=== PATIENT | male | born 1975 | race Caucasian/White ===

== ENCOUNTER 2017-01-14 15:47 | Emergency (ER) | payer BC, OTHER ==
[2017-01-14] MEDS ORDERED: KETOROLAC 30 MG/ML 1 ML VIAL IM STA (16:38)
--- NOTE | 2017-01-14 17:03 | XR ---
EXAMINATION TYPE: 3 views thoracic spine. 5 views lumbar spine. DATE OF EXAM: 01/14/2017 COMPARISON: NONE HISTORY: 41-year-old male with back pain after fall yesterday FINDINGS: Thoracic spine: 12 rib-bearing thoracic vertebral bodies. All pedicles are visualized. Vertebral body heights are pre served and alignment is maintained. Lumbar spine: Slight rotary levoconvex curvature of the lumbar spine with 5 lumbar type vertebral bodies. Mild dege nerative disc disease at L5-S1 with a limbus vertebra of the inferior L5. Vertebral body heights are preserved and alignment is maintained. IMPRESSION: 1. Thoracic and lumbar spine without vertebral compression collapse or malalignment. 2. Mild degenerative disc disease L5-S1. 3. Slight rotary levoconvex curvature/scoliosis of the lumbar spine.
--- NOTE | 2017-01-14 17:11 | ED ---
Back Pain HPI - General Chief Complaint: Back Pain/Injury Stated Complaint: Back Pain Time Seen by Provider: 01/14/17 16:36 Source: patient Limitations: no limitations - History of Present Illness Initial Comments: Patient is a 41-year-old male presenting to the emergency department with complaints of mid back pain. Patient states he was at the [facility] yesterday and first tripped over a cord while he might hurt his back. Patient then participated in a [employer] rides which exacerbated his back pain. Patient states he used to have problems with back pain but not anymore. Patient is currently rating his pain 6 out of 10, described as sharp, exacerbated with flexion and twisting. Patient denies recent illness, fevers, nausea, vomiting, shortness of breath, chest pain, abdominal pain, numbness or tingling, urinary or fecal incontinence, or saddle anesthesia. Patient is ambulatory. Patient states he took Tylenol prior to arrival. - Related Data Home Medications Medication Instructions Recorded Confirmed No Known Home Medications [No 01/14/17 01/14/17 Known Home Medications] Allergies Allergy/AdvReac Type Severity Reaction Status Date / Time Penicillins Allergy Anaphylaxis Verified 01/14/17 16:43 Review of Systems ROS Statement: Those systems with pertinent positive or pertinent negative responses have been documented in the HPI. ROS Other: All systems not noted in ROS Statement are negative. Past Medical History Past Medical History: No Reported History History of Any Multi-Drug Resistant Organisms: None Reported Past Surgical History: No Surgical Hx Reported Additional Past Surgical History / Comment(s): smokes 1 ppd Past Psychological History: No Psychological Hx Reported Smoking Status: Current every day smoker Past Alcohol Use History: None Reported Past Drug Use History: None Reported - Past Family History Mother History Unknown: Yes (Cardiac history) General Exam - General Exam Comments Initial Comments: GENERAL: Pt awake and alert, well-appearing, well-nourished, and in no acute distress. HEAD: Atraumatic, normocephalic. EYES: Pupils equal, round, and reactive to light, extraocular movements intact, sclera anicteric, conjunctiva are normal. ENT: Oropharynx clear without exudates. Moist mucous membranes. NECK:Normal range of motion, supple without lymphadenopathy. LUNGS: Breath sounds clear to auscultation bilaterally. No wheezes, rales, or rhonchi. HEART: Heart S1, S2, no S3 or S4. Regular rate and rhythm. No murmurs, rubs or gallops. ABDOMEN: Soft, nontender, nondistended, normoactive bowel sounds. No guarding, no rebound. No masses or organomegaly appreciated. Spine: Full range of motion of spine with flexion and extension even though it' s painful. Straight leg raise negative bilaterally. 5 out of 5 strength in hips/knees/ankles. Normal gait. Vertebral tenderness to mid back. EXTREMITIES: 2+ peripheral pulses. No edema. No calf tenderness. NEUROLOGICAL: Pt oriented x 3. No focal deficits noted. Strength and sensation grossly intact. PSYCH: Normal mood, normal affect. SKIN: Warm, dry, intact. Normal turgor. No rashes or lesions. Limitations: no limitations Course Vital Signs 01/14/17 01/14/17 16:09 17:35 Temperature 98.4 F 97.9 F Pulse Rate 70 62 Respiratory 20 14 Rate Blood Pressure 101/59 105/55 O2 Sat by Pulse 98 96 Oximetry Medical Decision Making - Medical Decision Making Acute mid back pain suspect secondary to strain. Spine and lumbar X-ray negative for acute fracture or dislocation. Patient given Toradol IM in the emergency department improvement. Patient instructed to follow-up with primary care physician or orthopedic service if pain does not improve. Discharge instructions and return parameters reviewed. - Radiology Data Radiology results: report reviewed X-ray thoracic spine x-ray lumbar spine: Thoracic and lumbar spine without vertebral compression collapse or malalignment. Mild degenerative disc disease L5 to S1. Slight rotary levoconvex curvature/scoliosis of the lumbar spine. Disposition Clinical Impression: Thoracic back sprain Disposition: HOME SELF-CARE Condition: Good Instructions: Acute Low Back Pain (ED) Additional Instructions: Continue Tylenol or Motrin for pain. May apply warm compresses or ice for relief. Follow-up with primary care physician as directed. If pain persists follow-up with orthopedic service. Referrals: Khurram Tripp MD [Primary Care Provider] - 1-2 days Roel Cheney MD [STAFF PHYSICIAN] - 1-2 days Time of Disposition: 17:10
[2017-01-14 17:37] VITALS: BP 105/55; PULSE 62; RESP 14; TEMP 97.9
== END 2017-01-14 17:37 | disposition home or self-care (01) ==
LOC: EC 15:47
DX: S23.3XXA Sprain of ligaments of thoracic spine, initial encounter (principal); F17.200 Nicotine dependence, unspecified, uncomplicated; Z88.0 Allergy status to penicillin; X50.1XXA Overexertion from prolonged static or awkward postures, initial encounter
CPT/HCPCS: 72072; 72110; 99283; 96372; J1885

== ENCOUNTER 2018-01-03 04:24 | Emergency (ER) | payer OTHER ==
[2018-01-03 04:29] VITALS: BP 114/70; PULSE 57; RESP 16; TEMP 98
[2018-01-03] MEDS ORDERED: CEPHALEXIN 500 MG CAP PO STA (05:04)
[2018-01-03] MEDS ORDERED: IBUPROFEN 600 MG TAB PO STA (05:04)
--- NOTE | 2018-01-03 05:18 | ED ---
ENT HPI - General Chief complaint: Dental/Oral Stated complaint: Mouth Injury Time Seen by Provider: 01/03/18 04:35 Source: patient Mode of arrival: ambulatory Limitations: no limitations - History of Present Illness Initial comments: This patient is a 42-year-old man who states that he was working on his car when he sustained a lip laceration. The patient states that he was in the process of swelling and hammer back and it struck his upper lip. He noticed that there was a laceration and he presents here to see about having this repaired. Patient denies any other injury. Patient states that he was wearing dentures and that these were cracked. He denies any injury other than that. MD complaint: other (Lip laceration) Onset/Timin -: hour(s) Location: upper lip Severity: mild Quality: dull Consistency: constant Improves with: none Worsens with: none - Related Data Previous Rx's Medication Instructions Recorded Cephalexin [Keflex] 500 mg PO Q6HR #28 cap 01/03/18 Ibuprofen [Motrin] 600 mg PO Q8HR PRN #20 tab 01/03/18 Allergies Allergy/AdvReac Type Severity Reaction Status Date / Time Penicillins Allergy Anaphylaxis Verified 01/03/18 04:29 Review of Systems ROS Statement: Those systems with pertinent positive or pertinent negative responses have been documented in the HPI. ROS Other: All systems not noted in ROS Statement are negative. Constitutional: Denies: fever ENT: Reports: other (Lip laceration). Denies: throat pain, epistaxis Respiratory: Denies: cough, dyspnea Hematological/Lymphatic: Denies: easy bleeding Past Medical History Past Medical History: No Reported History History of Any Multi-Drug Resistant Organisms: None Reported Past Surgical History: No Surgical Hx Reported Additional Past Surgical History / Comment(s): smokes 1 ppd Past Psychological History: No Psychological Hx Reported Smoking Status: Current every day smoker Past Alcohol Use History: None Reported Past Drug Use History: None Reported - Past Family History Mother History Unknown: Yes (Cardiac history) General Exam Limitations: no limitations General appearance: alert, in no apparent distress Head exam: Present: atraumatic, normocephalic Eye exam: Present: normal appearance. Absent: scleral icterus, conjunctival injection ENT exam: Present: other (The patient has an approximately 2 cm laceration to the upper lip bilaterally. The oral mucosa.) Skin exam: Present: warm, dry, normal color Course Vital Signs 01/03/18 04:26 Temperature 98 F Pulse Rate 57 L Respiratory 16 Rate Blood Pressure 114/70 O2 Sat by Pulse 98 Oximetry Procedures - Laceration Laceration #1 Consent Obtained: verbal consent Indication: laceration Site: lip Description: linear, clean Depth: simple, single layer Anesthetic Used: lidocaine 1% Anesthesia Technique: local infiltration Type of Sutures: vicryl Size of Sutures: 5-0 Number of Sutures: 2 Technique: simple, interrupted Patient Tolerated Procedure: well, no complications Disposition Clinical Impression: Lip laceration Disposition: HOME SELF-CARE Condition: Good Instructions: Laceration (ED) Prescriptions: Cephalexin [Keflex] 500 mg PO Q6HR #28 cap Ibuprofen [Motrin] 600 mg PO Q8HR PRN #20 tab PRN Reason: Pain Is patient prescribed a controlled substance at d/c from ED?: No Referrals: None,Stated [Primary Care Provider] - 1-2 days
== END 2018-01-03 05:37 | disposition home or self-care (01) ==
LOC: EC 04:24
DX: S01.511A Laceration without foreign body of lip, initial encounter (principal); F17.210 Nicotine dependence, cigarettes, uncomplicated; Z88.0 Allergy status to penicillin; Z97.2 Presence of dental prosthetic device (complete) (partial); W22.8XXA Striking against or struck by other objects, initial encounter; Y93.89 Activity, other specified
CPT/HCPCS: 12011; 99283

== ENCOUNTER 2019-01-23 04:56 | Emergency (ER) | payer OTHER ==
[2019-01-23 05:29] VITALS: BP 118/76; PULSE 67; RESP 18; TEMP 97.5
[2019-01-23] MEDS ORDERED: IBUPROFEN 600 MG TAB PO STA (05:42)
[2019-01-23] MEDS ORDERED: DIAZEPAM 5 MG TAB PO STA (05:42)
--- NOTE | 2019-01-23 05:42 | ED ---
Back Pain HPI - General Chief Complaint: Back Pain/Injury Stated Complaint: Back Pain Time Seen by Provider: 01/23/19 05:39 Source: patient, family Limitations: no limitations - History of Present Illness Initial Comments: This patient is a 43-year-old man who believes that he strained his back. The patient states that he had gone to help his father with some yard work. He st ates that he had pulled palate out of a grassy area, and believes he strained his low back. He states that that had been couple of days ago and then over the course of the next day he developed stiffness and aching to the low back. He is not having any weakness or numbness of the extremities. No change in urination or bowel movements. No abdominal pain. No saddle anesthesia. MD Complaint: back injury Onset/Timin -: days(s) Similar Symptoms Previously: Yes Place: street Radiation: none Severity: moderate Quality: aching Consistency: constant Improves With: walking, other (Standing) Worsens With: sitting upright Context: while lifting Associated Symptoms: denies other symptoms - Related Data Previous Rx's Medication Instructions Recorded Cephalexin [Keflex] 500 mg PO Q6HR #28 cap 01/03/18 Ibuprofen [Motrin] 600 mg PO Q8HR PRN #20 tab 01/03/18 Ibuprofen [Motrin] 600 mg PO Q8HR PRN #20 tab 01/23/19 Methocarbamol [Robaxin-750] 750 mg PO TID PRN #30 tablet 01/23/19 Allergies Allergy/AdvReac Type Severity Reaction Status Date / Time Penicillins Allergy Anaphylaxis Verified 01/23/19 05:07 Review of Systems ROS Statement: Those systems with pertinent positive or pertinent negative responses have been documented in the HPI. ROS Other: All systems not noted in ROS Statement are negative. Constitutional: Denies: fever, chills, weakness Respiratory: Denies: cough, dyspnea Cardiovascular: Denies: chest pain, edema Gastrointestinal: Denies: abdominal pain Genitourinary: Denies: dysuria, hematuria, testicular pain, testicular mass Musculoskeletal: Reports: as per HPI, back pain Skin: Denies: rash Neurological: Denies: weakness, numbness, paresthesias Past Medical History Past Medical History: No Reported History History of Any Multi-Drug Resistant Organisms: None Reported Past Surgical History: No Surgical Hx Reported Additional Past Surgical History / Comment(s): smokes 1 ppd Past Psychological History: No Psychological Hx Reported Smoking Status: Current every day smoker Past Alcohol Use History: None Reported Past Drug Use History: None Reported - Past Family History Mother History Unknown: Yes (Cardiac history) General Exam Limitations: no limitations General appearance: alert, in no apparent distress Respiratory exam: Present: normal lung sounds bilaterally. Absent: respiratory distress, wheezes, rales, rhonchi, stridor Cardiovascular Exam: Present: regular rate, normal rhythm, normal heart sounds. Absent: systolic murmur, diastolic murmur, gallop GI/Abdominal exam: Present: soft. Absent: distended, tenderness, guarding, rebound, rigid, pulsatile mass Extremities exam: Present: normal inspection, normal capillary refill. Absent: pedal edema, calf tenderness Back exam: Present: normal inspection, muscle spasm. Absent: CVA tenderness (R), CVA tenderness (L), vertebral tenderness Neurological exam: Present: alert, normal gait, reflexes normal. Absent: motor sensory deficit Skin exam: Present: warm, dry, intact, normal color. Absent: rash Course Vital Signs 01/23/19 05:03 Temperature 97.5 F L Pulse Rate 67 Respiratory 18 Rate Blood Pressure 118/76 O2 Sat by Pulse 99 Oximetry Disposition Clinical Impression: Strain of lumbar region Disposition: HOME SELF-CARE Condition: Good Instructions (If sedation given, give patient instructions): Acute Low Back Pain (ED) Prescriptions: Ibuprofen [Motrin] 600 mg PO Q8HR PRN #20 tab PRN Reason: Pain Methocarbamol [Robaxin-750] 750 mg PO TID PRN #30 tablet PRN Reason: pain Is patient prescribed a controlled substance at d/c from ED?: No Referrals: None,Stated [Primary Care Provider] - 1-2 days
== END 2019-01-23 06:08 | disposition home or self-care (01) ==
LOC: EC 04:56
DX: S39.012A Strain of muscle, fascia and tendon of lower back, initial encounter (principal); F17.200 Nicotine dependence, unspecified, uncomplicated; Z88.0 Allergy status to penicillin; X50.9XXA Other and unspecified overexertion or strenuous movements or postures, initial encounter; Y92.096 Garden or yard of other non-institutional residence as the place of occurrence of the external cause
CPT/HCPCS: 99283

== ENCOUNTER 2021-02-03 05:23 | Emergency (ER) | payer OTHER ==
[2021-02-03 05:34] VITALS: BP 107/90; PULSE 57; RESP 20; TEMP 98.1
[2021-02-03] MEDS ORDERED: KETOROLAC 15 MG/ML 1 ML VIAL IM STA (06:30)
[2021-02-03] MEDS ORDERED: ORPHENADRINE 30 MG/ML 2 ML VIAL IM STA (06:30)
--- NOTE | 2021-02-03 06:51 | ED ---
General Adult HPI - General Chief complaint: Back Pain/Injury Stated complaint: Back pain Time Seen by Provider: 02/03/21 06:01 Source: patient, RN notes reviewed Mode of arrival: ambulatory Limitations: no limitations - History of Present Illness Initial comments: 45-year-old male without significant past medical history presents to the emergency room for a chief complaint of back pain. Patient reports he has left- sided back pain. 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 Patient reports that this morning when he woke up his pain was worse in his back felt more stiff. States this feels like exactly a few years ago when he strained his back. Patient denies bladder or bowel changes, saddle anesthesia, weakness of the lower extremities, radiating pain, or fevers. RPatient has no other complaints at this time including shortness of breath, chest pain, abdominal pain, nausea or vomiting, headache, or visual changes. - Related Data Previous Rx's Medication Instructions Recorded Cephalexin [Keflex] 500 mg PO Q6HR #28 cap 01/03/18 Ibuprofen [Motrin] 600 mg PO Q8HR PRN #20 tab 01/03/18 Ibuprofen [Motrin] 600 mg PO Q8HR PRN #20 tab 01/23/19 Methocarbamol [Robaxin-750] 750 mg PO TID PRN #30 tablet 01/23/19 Cyclobenzaprine [Flexeril] 10 mg PO TID #14 tab 02/03/21 Allergies Allergy/AdvReac Type Severity Reaction Status Date / Time Penicillins Allergy Anaphylaxis Verified 02/03/21 05:34 Review of Systems ROS Statement: Those systems with pertinent positive or pertinent negative responses have been documented in the HPI. ROS Other: All systems not noted in ROS Statement are negative. Past Medical History Past Medical History: No Reported History History of Any Multi-Drug Resistant Organisms: None Reported Past Surgical History: No Surgical Hx Reported Additional Past Surgical History / Comment(s): smokes 1 ppd Past Psychological History: No Psychological Hx Reported Smoking Status: Current every day smoker Past Alcohol Use History: None Reported Past Drug Use History: None Reported - Past Family History Mother History Unknown: Yes (Cardiac history) General Exam Limitations: no limitations General appearance: alert, in no apparent distress Head exam: Present: atraumatic, normocephalic, normal inspection Eye exam: Present: normal appearance, PERRL, EOMI. Absent: scleral icterus, conjunctival injection, periorbital swelling ENT exam: Present: normal exam, mucous membranes moist Neck exam: Present: normal inspection, full ROM. Absent: tenderness Respiratory exam: Present: normal lung sounds bilaterally. Absent: respiratory distress, wheezes Cardiovascular Exam: Present: regular rate, normal rhythm, normal heart sounds GI/Abdominal exam: Present: soft, normal bowel sounds. Absent: distended, tenderness, guarding, rebound, rigid Extremities exam: Present: normal capillary refill (Capillary refill less than 2 seconds, DP pulse 2+ in bilateral lower extremities.) Back exam: Present: paraspinal tenderness (L Sided lumbar paraspinal tenderness near SI joint.). Absent: vertebral tenderness Course Vital Signs 02/03/21 05:30 Temperature 98.1 F Pulse Rate 57 L Respiratory 20 Rate Blood Pressure 107/90 O2 Sat by Pulse 100 Oximetry Medical Decision Making - Medical Decision Making Patient is well-appearing. Patient presents for left-sided back pain exacerbated by lifting. He denies red flag symptoms. Patient is able to flex lumbar spine to about 45. Pain is worsened with movement such as getting out of bed and standing up straight. Neurovascular status intact in bilateral lower extremities. Patient denies any injuries. Patient was given Toradol and Norflex. He will be discharged home with muscle relaxers but is aware he cannot drive while taking this. Patient will be given extra days of work per his request. He will return for any worsening symptoms. He will follow up with or thopedics. Disposition Clinical Impression: Mechanical back pain Disposition: HOME SELF-CARE Condition: Good Instructions (If sedation given, give patient instructions): Acute Low Back Pain (ED) Additional Instructions: Take Motrin and Tylenol for pain alternating every 3 hours as needed. Take muscle relaxer as needed but do not drive or operate machinery while taking this. Follow-up with your doctor as well as orthopedics in one to 2 days. You may need MRI if pain is persistent. Return to the emergency room for any worsening symptoms. Prescriptions: Cyclobenzaprine [Flexeril] 10 mg PO TID #14 tab Is patient prescribed a controlled substance at d/c from ED?: No Referrals: Cong Townsend MD [STAFF PHYSICIAN] - 1-2 days Time of Disposition: 06:49
== END 2021-02-03 07:03 | disposition home or self-care (01) ==
LOC: EC 05:23
DX: M54.5 Low back pain (principal); F17.210 Nicotine dependence, cigarettes, uncomplicated; Z88.0 Allergy status to penicillin
CPT/HCPCS: 99283; 96372 ×2; J2360; J1885

== ENCOUNTER 2021-02-23 13:46 | Emergency (ER) | payer OTHER ==
[2021-02-23 13:51] VITALS: BP 126/82; TEMP 98.2
[2021-02-23] MEDS ORDERED: DIPH,PERTUS(ACELL)TETVAC-LF 0.5 ML VIAL IM ONE (14:07)
[2021-02-23] MEDS ORDERED: LIDOCAINE 1% INJ 10MG/ML (20 ML MDV) SQ STA (14:07)
--- NOTE | 2021-02-23 14:15 | ED ---
General Adult HPI - General Chief complaint: Wound/Laceration Stated complaint: R hand laceration Time Seen by Provider: 02/23/21 14:00 Source: patient, RN notes reviewed Mode of arrival: ambulatory Limitations: no limitations - History of Present Illness Initial comments: 45-year-old male presents to the emergency room for a chief complaint of laceration of the right hand. Patient was moving a fridge and did not notice there is a piece of metal that cut his right hand. He denies any difficulty moving the fingers. Tetanus is up-to-date 3 years ago. Patient wanted to glue it but thought it might require sutures.Patient has no other complaints at this time including shortness of breath, chest pain, abdominal pain, nausea or vomiting, headache, or visual changes. - Related Data Previous Rx's Medication Instructions Recorded Cephalexin [Keflex] 500 mg PO Q6HR #28 cap 01/03/18 Ibuprofen [Motrin] 600 mg PO Q8HR PRN #20 tab 01/03/18 Ibuprofen [Motrin] 600 mg PO Q8HR PRN #20 tab 01/23/19 Methocarbamol [Robaxin-750] 750 mg PO TID PRN #30 tablet 01/23/19 Cyclobenzaprine [Flexeril] 10 mg PO TID #14 tab 02/03/21 Allergies Allergy/AdvReac Type Severity Reaction Status Date / Time Penicillins Allergy Anaphylaxis Verified 02/23/21 13:49 Review of Systems ROS Statement: Those systems with pertinent positive or pertinent negative responses have been documented in the HPI. ROS Other: All systems not noted in ROS Statement are negative. Past Medical History Past Medical History: No Reported History History of Any Multi-Drug Resistant Organisms: None Reported Past Surgical History: No Surgical Hx Reported Additional Past Surgical History / Comment(s): smokes 1 ppd Past Psychological History: No Psychological Hx Reported Smoking Status: Current every day smoker Past Alcohol Use History: None Reported Past Drug Use History: None Reported - Past Family History Mother History Unknown: Yes (Cardiac history) General Exam Limitations: no limitations General appearance: alert, in no apparent distress Head exam: Present: atraumatic, normocephalic, normal inspection Eye exam: Present: normal appearance, PERRL, EOMI. Absent: scleral icterus, conjunctival injection, periorbital swelling ENT exam: Present: normal exam, mucous membranes moist Neck exam: Present: normal inspection, full ROM. Absent: tenderness, meningismus, lymphadenopathy Respiratory exam: Present: normal lung sounds bilaterally. Absent: respiratory distress, wheezes, rales, rhonchi, stridor Cardiovascular Exam: Present: regular rate, normal rhythm, normal heart sounds. Absent: systolic murmur, diastolic murmur, rubs, gallop, clicks Extremities exam: Present: full ROM (Full range of motion of all digits of the right hand.), normal capillary refill (Capillary refill less than 2 seconds in the right hand. Radial pulse 2+.), other (Patient has a 3 cm laceration on the dorsal aspect of the right hand between the first and second metacarpals) Course Vital Signs 02/23/21 02/23/21 13:49 15:01 Temperature 98.2 F 98.2 F Pulse Rate 69 75 Respiratory 16 18 Rate Blood Pressure 126/82 O2 Sat by Pulse 97 98 Oximetry Procedures - Laceration Laceration #1 Consent Obtained: verbal consent Indication: laceration Site: hand Size (cm): 3 Description: linear Depth: simple, single layer Anesthetic Used: lidocaine 1% Anesthesia Technique: local infiltration Amount (mls): 3 Pre-repair: wound explored, irrigated extensively Type of Sutures: nylon Size of Sutures: 5-0 Number of Sutures: 5 Patient Tolerated Procedure: well, no complications Medical Decision Making - Medical Decision Making X-ray shows no acute fracture. There is linear lucency consistent with laceration over base of the first metacarpal without radiodense foreign body. Patient's wound was irrigated with saline pressure irrigation. Laceration was repaired of the right hand. Discussed care parameters. Discussed following up with primary care for recheck and returning in 7-10 days for suture removal Disposition Clinical Impression: Laceration Disposition: HOME SELF-CARE Condition: Good Instructions (If sedation given, give patient instructions): Care For Your Stitches (ED), Laceration (ED) Additional Instructions: Keep area clean. Apply antibiotic ointment as needed. Monitor for signs of infection such as spreading or streaking redness, drainage, or fever and return if these occur. Return if you have any other worsening symptoms. Is patient prescribed a controlled substance at d/c from ED?: No Referrals: Darren Caldera MD [REFERRING] - 1-2 days Time of Disposition: 14:14
--- NOTE | 2021-02-23 14:29 | XR ---
EXAMINATION TYPE: XR hand complete RT DATE OF EXAM: 02/23/2021 CLINICAL HISTORY: Laceration injury with pain TECHNIQUE: Frontal, lateral and oblique images of the right hand are obtained. COMPARISON: None. FINDINGS: There is no acute fracture/dislocation evident in the right hand. The joint spaces in the hand appear within normal limits. Linear lucency consistent with laceration over base of first metaca rpal identified. No suspicious radiodense foreign body seen. IMPRESSION: As above.
[2021-02-23] MEDS ORDERED: BACITRACIN OINT 1 EACH PACKET TOPICAL ONE (14:52)
[2021-02-23 15:03] VITALS: PULSE 75; RESP 18
== END 2021-02-23 15:01 | disposition home or self-care (01) ==
LOC: EC 13:46
DX: S61.411A Laceration without foreign body of right hand, initial encounter (principal); Z23 Encounter for immunization; F17.200 Nicotine dependence, unspecified, uncomplicated; Z88.0 Allergy status to penicillin; W26.8XXA Contact with other sharp object(s), not elsewhere classified, initial encounter
CPT/HCPCS: 99283; 90471; 12002; 73130; 90715; J2001

== ENCOUNTER 2021-06-19 01:44 | Emergency (ER) | payer OTHER ==
[2021-06-19 01:56] VITALS: RESP 18; TEMP 98.3
[2021-06-19 02:26] LABS: Basophils # (A) 0.1 k/uL (0-0.2); Basophils % (A) 1 %; Eosinophils # (A) 0.1 k/uL (0-0.7); Eosinophils % (A) 2 %; HCT 44.5 % (39.0-53.0); HGB 15.6 gm/dL (13.0-17.5); Lymphocytes # (A) 0.9 k/uL (1.0-4.8); Lymphocytes % (A) 17 %; MCH 32.4 pg (25.0-35.0); MCHC 35.1 g/dL (31.0-37.0); MCV 92.5 fL (80.0-100.0); Mean Platelet Volume 7.6; Monocytes # (A) 0.6 k/uL (0-1.0); Monocytes % (A) 10 %; Neutrophils # (A) 3.8 k/uL (1.3-7.7); Neutrophils % (A) 68 %; Platelet Count 132 k/uL (150-450); RBC 4.82 m/uL (4.30-5.90); RDW 12.6 % (11.5-15.5); WBC 5.6 k/uL (3.8-10.6)
--- NOTE | 2021-06-19 02:41 | XR ---
EXAMINATION TYPE: XR chest 2V DATE OF EXAM: 06/19/2021 COMPARISON: 06/02/2015 HISTORY: Chest pain TECHNIQUE: 2 views FINDINGS: Heart and mediastinum are normal. Lungs are clear. Diaphragm is normal. Bony thorax appears normal. IMPRESSION: Normal chest. No adverse change.
[2021-06-19 02:43] LABS: ALT 20 U/L (4-49); AST 28 U/L (17-59); African American GFR (CKD) >90 (>60 ml/min/1.73 sqM); Albumin 4.1 g/dL (3.5-5.0); Alkaline Phosphatase 57 U/L (38-126); Anion Gap 8 mmol/L; Blood Urea Nitrogen 24 mg/dL (9-20); Calcium 9.5 mg/dL (8.4-10.2); Carbon Dioxide 22 mmol/L (22-30); Chloride 104 mmol/L (98-107); Glucose 128 mg/dL (74-99); Magnesium 1.7 mg/dL (1.6-2.3); Non-African American GFR(CKD) 90 (>60 ml/min/1.73 sqM); Potassium 4.7 mmol/L (3.5-5.1); Sodium 134 mmol/L (137-145); Total Bilirubin 0.2 mg/dL (0.2-1.3); Total Protein 6.9 g/dL (6.3-8.2)
[2021-06-19] MEDS ORDERED: IBUPROFEN 800 MG TAB PO STA (04:47)
[2021-06-19] MEDS ORDERED: Acetaminophen-Codeine 300-30mg TAB PO STA (04:47)
--- NOTE | 2021-06-19 05:18 | CT ---
EXAMINATION TYPE: CT abdomen pelvis wo con DATE OF EXAM: 06/19/2021 COMPARISON: None HISTORY: BACK PAIN CT DLP: 340.7 mGycm Automated exposure control for dose reduction was used. Images obtained from the diaphragm to the floor the pelvis with no contrast. Lung bases are clear. There is no pleural effusion. Heart size is normal. There is no pericardial eff usion. There is some wall thickening of the gastric fundus. Spleen is intact. There is no pancreatic mass. G allbladder appears normal. Liver shows no focal defect. The bile ducts are not dilated. There is no adrenal mass. Kidneys have normal size. There is no hydronephrosis. Ureters are not dilat ed. There is no retroperitoneal adenopathy. Bladder has mild wall thickening. There is no inguinal he rnia. There is no evidence of a pelvic mass. There is no free fluid in the pelvis. The appendix is me dial and appears normal. The lumbar vertebra appear intact. There is no compression fracture. Bony pelvis is intact. Hip joint s are intact. Sacroiliac joints appear normal. There is a slight lumbar levoscoliosis. There is no mesenteric edema. There is no ascites or free air. There is no bowel obstruction. IMPRESSION: There is mild wall thickening of the gastric fundus that could relate to hypertrophic gastritis. Normal appendix. Mild urinary bladder wall thickening could be some nonspecific cystitis.
[2021-06-19] MEDS ORDERED: ACET/COD 300 MG/30 MG STARTER PACK 6 TAB BTL PO STA (05:50)
[2021-06-19] MEDS ORDERED: IBUPROFEN 600 MG STARTER PACK 4 TAB BTL PO STA (05:50)
--- NOTE | 2021-06-19 05:51 | ED ---
Back Pain HPI - General Chief Complaint: Back Pain/Injury Stated Complaint: back pain Time Seen by Provider: 06/19/21 04:05 Source: patient, RN notes reviewed, old records reviewed Limitations: no limitations - History of Present Illness Initial Comments: This is a 45-year-old male to the emergency. Patient presents today for evaluation in regards to not feeling well. Patient has had severe back pain throughout the course of the day. Back pain thoracic back pain with radiation or blades radiating down lower back. Severe pain with some onset but has progressively getting worse since started. No trauma. No fever cough or congestion. No other complaints patient originally was just muscle spasm but symptoms have gone away are progressively MD Complaint: back pain -: days(s) (2) Similar Symptoms Previously: Yes Place: home Radiation: buttocks Severity: moderate Severity scale (1-10): 4 Quality: sharp, aching Consistency: constant Improves With: none Worsens With: none Context: while lifting, turning/twisting, unknown Associated Symptoms: denies other symptoms Treatments Prior to Arrival: other (none) - Related Data Previous Rx's Medication Instructions Recorded Cephalexin [Keflex] 500 mg PO Q6HR #28 cap 01/03/18 Ibuprofen [Motrin] 600 mg PO Q8HR PRN #20 tab 01/03/18 Ibuprofen [Motrin] 600 mg PO Q8HR PRN #20 tab 01/23/19 Methocarbamol [Robaxin-750] 750 mg PO TID PRN #30 tablet 01/23/19 Cyclobenzaprine [Flexeril] 10 mg PO TID #14 tab 02/03/21 Allergies Allergy/AdvReac Type Severity Reaction Status Date / Time Penicillins Allergy Anaphylaxis Verified 06/19/21 01:56 Review of Systems ROS Statement: Those systems with pertinent positive or pertinent negative responses have been documented in the HPI. ROS Other: All systems not noted in ROS Statement are negative. Past Medical History Past Medical History: No Reported History History of Any Multi-Drug Resistant Organisms: None Reported Past Surgical History: No Surgical Hx Reported Additional Past Surgical History / Comment(s): smokes 1 ppd Past Psychological History: No Psychological Hx Reported Smoking Status: Current every day smoker Past Alcohol Use History: None Reported Past Drug Use History: Marijuana - Past Family History Mother History Unknown: Yes (Cardiac history) General Exam Limitations: no limitations General appearance: alert, in no apparent distress Head exam: Present: atraumatic, normocephalic, normal inspection Eye exam: Present: normal appearance, PERRL, EOMI. Absent: scleral icterus, conjunctival injection, periorbital swelling ENT exam: Present: normal exam, mucous membranes moist Neck exam: Present: normal inspection. Absent: tenderness, meningismus, lymphadenopathy Respiratory exam: Present: normal lung sounds bilaterally. Absent: respiratory distress, wheezes, rales, rhonchi, stridor Cardiovascular Exam: Present: regular rate, normal rhythm, normal heart sounds. Absent: systolic murmur, diastolic murmur, rubs, gallop, clicks GI/Abdominal exam: Present: soft, normal bowel sounds. Absent: distended, tenderness, guarding, rebound, rigid Extremities exam: Present: normal inspection, full ROM, normal capillary refill. Absent: tenderness, pedal edema, joint swelling, calf tenderness Back exam: Present: normal inspection Neurological exam: Present: alert, oriented X3, CN II-XII intact Psychiatric exam: Present: normal affect, normal mood Skin exam: Present: warm, dry, intact, normal color. Absent: rash Course Vital Signs 06/19/21 06/19/21 01:52 05:58 Temperature 98.3 F 98.3 F Pulse Rate 100 98 Respiratory 18 18 Rate Blood Pressure 106/69 108/79 O2 Sat by Pulse 98 98 Oximetry - Reevaluation(s) Reevaluation #1: Medical record is reviewed Patient is improved symptoms here in the ER, no complaints Patient informed results and questions answered Medical Decision Making - Medical Decision Making Joyce male DF for evaluation of back pain severe back pain upper and lower back pain back pain in the back of the shoulders which she feels like makes control breathing and pain in his lower back extremities to his buttocks and groin. Pa randi is normal imaging here in the ER no other complaints - Lab Data Result diagrams: 06/19/21 02:07 06/19/21 02:07 Lab Results 06/19/21 06/19/21 06/19/21 Range/Units 02:07 02:07 02:07 WBC 5.6 (3.8-10.6) k/uL RBC 4.82 (4.30-5.90) m/uL Hgb 15.6 (13.0-17.5) gm/dL Hct 44.5 (39.0-53.0) % MCV 92.5 (80.0-100.0) fL MCH 32.4 (25.0-35.0) pg MCHC 35.1 (31.0-37.0) g/dL RDW 12.6 (11.5-15.5) % Plt Count 132 L (150-450) k/uL MPV 7.6 Neutrophils % 68 % Lymphocytes % 17 % Monocytes % 10 % Eosinophils % 2 % Basophils % 1 % Neutrophils # 3.8 (1.3-7.7) k/uL Lymphocytes # 0.9 L (1.0-4.8) k/uL Monocytes # 0.6 (0-1.0) k/uL Eosinophils # 0.1 (0-0.7) k/uL Basophils # 0.1 (0-0.2) k/uL Sodium 134 L (137-145) mmol/L Potassium 4.7 (3.5-5.1) mmol/L Chloride 104 (98-107) mmol/L Carbon Dioxide 22 (22-30) mmol/L Anion Gap 8 mmol/L BUN 24 H (9-20) mg/dL Creatinine 1.00 (0.66-1.25) mg/dL Est GFR (CKD-EPI)AfAm >90 (>60 ml/min/1.73 sqM) Est GFR (CKD-EPI)NonAf 90 (>60 ml/min/1.73 sqM) Glucose 128 H (74-99) mg/dL Calcium 9.5 (8.4-10.2) mg/dL Magnesium 1.7 (1.6-2.3) mg/dL Total Bilirubin 0.2 (0.2-1.3) mg/dL AST 28 (17-59) U/L ALT 20 (4-49) U/L Alkaline Phosphatase 57 (38-126) U/L Troponin I <0.012 (0.000-0.034) ng/mL Total Protein 6.9 (6.3-8.2) g/dL Albumin 4.1 (3.5-5.0) g/dL - Radiology Data Radiology results: report reviewed (Chest x-ray and CT abdomen and pelvis negative for acute disease), image reviewed Disposition Clinical Impression: Mechanical back pain, Thoracic back pain, Mid back pain Disposition: HOME SELF-CARE Condition: Good Instructions (If sedation given, give patient instructions): Acute Low Back Pain (ED) Is patient prescribed a controlled substance at d/c from ED?: No Referrals: None,Stated [Primary Care Provider] - 1-2 days
[2021-06-19 06:00] VITALS: BP 108/79; PULSE 98
== END 2021-06-19 05:59 | disposition home or self-care (01) ==
LOC: EC 01:44
DX: M54.6 Pain in thoracic spine (principal); F17.200 Nicotine dependence, unspecified, uncomplicated; F12.90 Cannabis use, unspecified, uncomplicated; Z88.0 Allergy status to penicillin
CPT/HCPCS: 36415; 71046; 74176; 80053; 83735; 84484; 85025; 93005; 99284